=== PATIENT | female | born 1965 | race Caucasian/White ===

== ENCOUNTER 2020-03-10 17:33 | Observation (INO) | payer BC ==
[~2020-03-10] VITALS: Ht 157.5 cm; Wt 68.2 kg
[2020-03-10] MEDS ORDERED: NO HOME MEDS (18:54)
[2020-03-10] MEDS ORDERED: acetaminophen 325mg tablet PO PRN (20:55)
[2020-03-10] MEDS ORDERED: mag hydrox/Alum hydrox/simeth 30ml oral suspension PO PRN (20:55)
[2020-03-10] MEDS ORDERED: ondansetron/PF 4mg/2ml inj IV PRN (20:55)
[2020-03-10] MEDS ORDERED: meclizine 12.5mg tablet PO PRN (20:55)
[2020-03-10] MEDS ORDERED: temazepam 15mg capsule PO PRN (21:00)
[2020-03-10 22:00] VITALS: BP 126/66
[2020-03-10] MEDS: normal saline 1000ml 1,000 ML IV SCH (22:21)
[2020-03-11 01:26] LABS: BASOPHILS % (AUTO) 0.8 % (0-1); EOSINOPHILS # (AUTO) 0.1 X10'3 (0-0.9); EOSINOPHILS % (AUTO) 1.4 % (0-6); HEMATOCRIT 41.2 % (35.0-45.0); HEMOGLOBIN 13.9 g/dl (12.0-16.0); LYMPHOCYTES # (AUTO) 2.2 X10'3 (1.1-4.8); LYMPHOCYTES % (AUTO) 37.3 % (21-51); MEAN CORPUSCULAR HEMOGLOBIN 30.1 PG (27.0-31.0); MEAN CORPUSCULAR HGB CONC 33.7 g/dL (33.0-36.5); MEAN CORPUSCULAR VOLUME 89.3 FL (78-98); MEAN PLATELET VOLUME 7.5 FL (7.4-10.4); MONOCYTES # (AUTO) 0.5 X10'3 (0-0.9); MONOCYTES % (AUTO) 8.3 % (2-12); NEUTROPHILS # (AUTO) 3.1 X10'3 (1.8-7.7); NEUTROPHILS % (AUTO) 52.2 % (42-75); PLATELET COUNT 226 X10'3 (140-440); RED BLOOD COUNT 4.61 X10'6 (4.20-5.60); RED CELL DISTRIBUTION WIDTH 12.9 % (11.5-14.5); WHITE BLOOD COUNT 5.9 X10'3 (4.5-11.0)
[2020-03-11 01:41] LABS: ALANINE AMINOTRANSFERASE 34 U/L (12-78); ALBUMIN 3.2 G/DL (3.4-5.0); ALKALINE PHOSPHATASE 54 IU/L (46-116); ANION GAP 3 (8-16); ASPARTATE AMINO TRANSFERASE 22 U/L (10-37); BILIRUBIN,TOTAL 0.4 MG/DL (0.1-1.0); BLOOD UREA NITROGEN 19 MG/DL (7-18); BUN/CREATININE RATIO 19.2 (6.6-38.0); CALCIUM 8.5 MG/DL (8.5-10.1); CHLORIDE 108 MMOL/L (99-107); CREATININE 0.99 MG/DL (0.40-0.90); GLUCOSE 107 MG/DL (70-104); POTASSIUM 3.6 MMOL/L (3.5-5.1); SODIUM 141 MMOL/L (135-145); TOTAL PROTEIN 6.4 G/DL (6.4-8.2); eGFR 58 ML/MIN
[2020-03-11 01:44] LABS: CHOL/HDL RATIO 5.3 (0.00-4.99); CHOLESTEROL 187 MG/DL (0-200); HDL CHOLESTEROL 35 MG/DL (35-60); LDL CHOLESTEROL 133 MG/DL (50-100); TRIGLYCERIDES 137 MG/DL (20-135)
[2020-03-11 02:00] VITALS: BP 119/72
[2020-03-11 06:00] VITALS: BP 119/74
--- NOTE | 2020-03-11 06:09 | NUR ---
Problems reprioritized. Patient report given Pablo, questions answered & plan of care reviewed with . Addendum: 03/11/20 at 0613 by Salvador Fenton RN Patient's admission and skin check not done, but Pablo is aware and will do the admission and skin check. Patient is alert, oriented x4. No chest pain and not at any distress.
[2020-03-11] MEDS: normal saline 1000ml 1,000 ML IV SCH ×2 (06:55→16:55)
[2020-03-11] MEDS ORDERED: heparin, porcine 5000 units/ml vial SQ SCH (08:00)
[2020-03-11 10:00] VITALS: BP 128/73
--- NOTE | 2020-03-11 10:23 | NUR ---
PAGER ID: [phone] MESSAGE: [phone] Twan mosquera. ambulated well. did 1000 feet no symptoms of delilah cardia. HR in the 60s. SKYE grimes ext [phone]
--- NOTE | 2020-03-11 11:15 | NUR ---
Malnutrition consult: Pt reports wt loss with decreased appetite per malnutrition risk screen with RN. Per H&P pt reports not eating much or drinking fluids d/t vertigo. No wt hx in EMR. Current documented wt is 136% IBW. Pt documented with 100% PO intake first meal on regular diet meeting nutrient needs. Pt with no documented decrease in muscle strength or edema. Pt appears well developed, well nourished per ED report. Pt currently lacks a minimum of two criteria for malnutrition. Will continue to follow. Addendum: 03/11/20 at [address] Amended: Links added.
[2020-03-11 15:00] VITALS: BP 104/54
--- NOTE | 2020-03-11 18:00 | NUR ---
Patient in room MED 311. I have received report from SKYE Ivory and had the opportunity to ask questions and assume patient care. Addendum: 03/11/20 at 1912 by Skylar Mccray RN Amended: Links added.
== END 2020-03-11 19:53 | disposition home or self-care (01) ==
LOC: ER 17:34 → ED HOLD 20:52 → MED 3N 21:50
PROVIDERS: ADMIT Internal Medicine; ATTEND Family Medicine
DX: R42 Dizziness and giddiness (principal); R00.1 Bradycardia, unspecified; H81.02 Meniere's disease, left ear; Z88.0 Allergy status to penicillin
CPT/HCPCS: 36415; 80053; 80061; 84484; 85025; 87081; 93005; 96360; 96361; 99284; G0378; J7030